=== PATIENT | female | born 1970 | race Caucasian/White ===

== ENCOUNTER 2017-02-15 05:33 | Day surgery (SDC) | payer OTHER ==
[~2017-02-15] VITALS: Ht 168.9 cm; Wt 100.2 kg
[~2017-02-15 05:33] MED LIST: FIORICET 50-301 EACH PO; IMITREX50 MG PO; INDOCIN25 MG PO; LOESTRIN FE; PLAQUENIL200 MG PO; PREDNISONE2.5 MG PO; VALIUM5 MG PO; VENTOLIN HFA18 GM IH; WELLBUTRIN XL300 MG PO; ZOFRAN ODT4 MG PO; ZOFRAN8 MG PO; ZOLOFT100 MG PO
[2017-02-15 06:13] VITALS: BP 122/57
[2017-02-15 14:03] VITALS: BP 138/83
[2017-02-15 18:25] LABS: ADD MIUA? YES; BILIRUBIN NEGATIVE; BLOOD LARGE; GLUCOSE (STRIP) NEGATIVE; KETONES NEGATIVE; LEUKOCYTES NEGATIVE; NITRITE NEGATIVE; PROTEIN (STRIP) 30; SPECIFIC GRAVITY 1.023 (1.000-1.030); UROBILINOGEN 0.2 MG/DL (0.2-1.0)
[2017-02-15 18:31] LABS: COLOR DK YELLOW ((YELLOW))
[2017-02-15 19:33] VITALS: BP 130/79
[2017-02-15 19:42] LABS: BACTERIA 1+ /HPF; EPITHELIAL CELLS 1+ /HPF; MUCUS NONE SEEN /LPF; RED BLOOD CELLS TNTC /HPF (0-5); WHITE BLOOD CELLS 0-5 /HPF (0-5)
[2017-02-15 23:31] VITALS: BP 111/72
[2017-02-16 03:28] VITALS: BP 105/55
[2017-02-16 06:23] LABS: HEMATOCRIT 29.6 % (36.0-46.0); MCH 26.3 PG (29.0-34.0); MCHC 31.4 G/DL (30.0-36.0); MCV 83.9 FL (83-99); MEAN PLAT.VOLUME 8.6 uM^3 (9.5-12.4); PLATELET COUNT 315 K/uL (156-360); RBC DIS.WIDTH-CV 13.2 % (11.8-14.6); RBC DIS.WIDTH-SD 40.4 % (39-53); RED BLOOD COUNT 3.53 M/uL (3.80-5.20)
[2017-02-16 06:51] LABS: ANION GAP 6 MEQ/L (2-14); CHLORIDE 106 MEQ/L (99-109); GFR ESTIMATE (CALCULATED) > 59 mL/min/; GLUCOSE 97 mg/dL (70-99); POTASSIUM 4.1 MEQ/L (3.7-5.4); SAMPLE HEMOLYSIS CHECK 0; SAMPLE ICTERIC CHECK 0; SAMPLE LIPEMIA CHECK 0; SODIUM 138 MEQ/L (136-147); UREA NITROGEN (BUN) 9 mg/dL (9-23)
[2017-02-16 07:10] VITALS: BP 104/56
[2017-02-16 11:26] VITALS: BP 105/57
[2017-02-16 15:44] VITALS: BP 109/65
[2017-02-16] MEDS ORDERED: PERCOCET 5/31 TABLET PO (18:26)
[2017-02-16] MEDS ORDERED: ULTRAM50 MG PO (18:26)
== END 2017-02-16 18:45 | disposition home or self-care (01) ==
LOC: SDC → 2SOUTH 09:30 → 2EAST 09:30 → ENRESERV 12:43 → 2EAST 13:40 → SDC 15:23 → 2EAST 02-16 18:45
PROVIDERS: Obstetrics & Gynecology; Obstetrics & Gynecology Gynecology
PROC: 0UB74ZZ Excision of Bilateral Fallopian Tubes, Percutaneous Endoscopic Approach (ICD-10-PCS; principal; 2017-02-15)
PROC: 0TJB8ZZ Inspection of Bladder, Via Natural or Artificial Opening Endoscopic (ICD-10-PCS; principal; 2017-02-15)
PROC: 0TSD4ZZ Reposition Urethra, Percutaneous Endoscopic Approach (ICD-10-PCS; principal; 2017-02-15)
PROC: 0UT94ZZ Resection of Uterus, Percutaneous Endoscopic Approach (ICD-10-PCS; principal; 2017-02-15)
DX: D25.9 Leiomyoma of uterus, unspecified (principal); N80.0 Endometriosis of uterus; N39.3 Stress incontinence (female) (male); N92.0 Excessive and frequent menstruation with regular cycle; D64.9 Anemia, unspecified
CPT/HCPCS: 80048; 81003; 85027; 87086; 88302; 88307; 94799; G0378; J0131; J0690; J1100; J1170; J2250; J2270; J2405; J2710; J3010; J7120; S0020